=== PATIENT | female | born 1990 | race Caucasian/White ===

== ENCOUNTER 2017-07-22 12:21 | Emergency (ER) | payer MEDICAID ==
[2017-07-22] MEDS: KETOROLAC 30 MG INJ IM (17:55)
== END 2017-07-22 18:36 | disposition home or self-care (01) ==
LOC: FTE 12:21
DX: N64.4 Mastodynia (principal)
CPT/HCPCS: 76642; 96372; 99285-25

== ENCOUNTER 2019-01-18 12:59 | Emergency (ER) | payer OTHER, MEDICAID | END 2019-01-18 15:43 | disposition home or self-care (01) | LOC: E/R 12:59 | DX: M25.561 Pain in right knee (principal); Z79.84 Long term (current) use of oral hypoglycemic drugs | CPT/HCPCS: 76536; 99284-25 ==